=== PATIENT | male | born 1985 | race Caucasian/White ===

== ENCOUNTER 2017-12-04 13:34 | Observation (INO) | payer MEDICAID ==
[2017-12-04] MEDS ORDERED: Sodium Chloride 0.9% 1,000 ML IV STA (14:19)
[2017-12-04 14:42] LABS: BASO # 0.1 K/uL (0.0-0.2); BASO % 1.2 % (0.0-2.0); EOS % 0.4 % (0.0-4.0); HEMOGLOBIN 16.9 g/dL (12.0-18.0); LYMPH # 1.3 K/uL (1.0-4.3); LYMPH % 17.1 % (20.0-40.0); MEAN CELL VOLUME 94.1 fl (80.0-94.0); MEAN CORPUSCULAR HEMOGLOBIN 32.9 pg (27.0-31.0); MEAN PLATELET VOLUME 7.7 fl (7.2-11.7); MONO # 0.6 K/uL (0.0-0.8); MONO % 7.5 % (0.0-10.0); NEUT # 5.6 K/uL (1.8-7.0); NEUT % 73.8 % (50.0-75.0); NRBC % 1.8 % (0.0-0.0); RBC 5.13 Mil/uL (4.40-5.90); RED CELL DISTRIBUTION WIDTH 13.2 % (11.5-14.5); WHITE BLOOD COUNT 7.6 K/uL (4.8-10.8)
[2017-12-04 14:49] LABS: PARTIAL THROMBOPLASTIN TIME 28.3 Seconds (25.6-37.1); PROTHROMBIN TIME 10.5 Seconds (9.8-13.1)
--- NOTE | 2017-12-04 14:52 | ED PDOC ---
HPI: Chest Pain Time Seen by Provider: 12/04/17 14:04 Chief Complaint (Nursing): Chest Pain Chief Complaint (Provider): Chest Pain History Per: Patient History/Exam Limitations: no limitations Onset/Duration Of Symptoms: Hrs (x2) Current Symptoms Are (Timing): Still Present Additional Complaint(s): 32 year old male with medical history of substance abuse, presents to the emergency department with a complaint of chest pain radiating to his left arm 2 hours prior to arrival. Patient currently reports that left arm pain resolved on its own after several minutes but has associated palpitations, anxiety and shakiness. He admits to "partying all night" by mixing alcohol, Cherry and another unknown drug. He denies any depression, seizures, numbness, weakness, vomiting, nausea, suicidal or homicidal ideation. Patient states he would like to enter an outpatient rehab center. PMD: none provided Past Medical History Reviewed: Historical Data, Nursing Documentation, Vital Signs Vital Signs: Last Vital Signs Temp 97.7 F 12/05/17 08:00 Pulse 80 12/05/17 08:00 Resp 18 12/05/17 08:00 BP 108/73 12/05/17 08:00 Pulse Ox 98 12/05/17 08:00 - Medical History PMH: Seizures - Surgical History Surgical History: No Surg Hx - Family History Family History: States: Unknown Family Hx - Social History Current smoker - smoking cessation education provided: Yes Alcohol: Occasional - Immunization History Hx Tetanus Toxoid Vaccination: No Hx Influenza Vaccination: No Hx Pneumococcal Vaccination: No - Home Medications Home Medications: Ambulatory Orders Medication Instructions Recorded No Known Home Med 10/29/15 - Allergies Allergies/Adverse Reactions: Allergies Allergy/AdvReac Type Severity Reaction Status Date / Time No Known Allergies Allergy Verified 12/04/17 13:43 JOS Risk Score for UA/NSTEMI - JOS Risk Score Age > 64: NO 3 or more CAD Risk Factors: NO Known CAD (Stenosis greater than 50%): NO Aspirin use in past 7 days: NO Severe Angina: NO EKG ST changes greater than 0.5mm: NO Positive Cardiac Marker: NO JOS Score: 0 Risk %: 5% Wells Criteria for PE - Wells Criteria for Pulmonary Embolism Clinical Signs and Symptoms of DVT: No P.E is #1 Diagnosis, or Equally Likely: No Heart Rate >100: No Immobilization at least 3 days;Surgery previous 4 weeks: No Previous, objectively diagnosed PE or DVT: No Hemoptysis: No Malignancy w/treatment within 6 months, or palliative: No Total Score: 0 Review of Systems ROS Statement: Except As Marked, All Systems Reviewed And Found Negative Constitutional: Positive for: Other (shaking) Cardiovascular: Positive for: Chest Pain, Palpitations Gastrointestinal: Negative for: Nausea, Vomiting Musculoskeletal: Positive for: Arm Pain (left-sided) Neurological: Negative for: Weakness, Numbness, Seizures Psych: Positive for: Anxiety. Negative for: Depression, Suicidal ideation (or homicidal ideation) Physical Exam - Reviewed Nursing Documentation Reviewed: Yes Vital Signs Reviewed: Yes - Physical Exam Appears: Positive for: No Acute Distress Skin: Positive for: Warm, Diaphoresis. Negative for: Rash Eye Exam: Positive for: Normal appearance, EOMI, PERRL Neck: Positive for: Normal, Painless ROM, Supple Cardiovascular/Chest: Positive for: Chest Non Tender, Tachycardia (with regular rate) Respiratory: Positive for: Normal Breath Sounds. Negative for: Wheezing, Respiratory Distress Gastrointestinal/Abdominal: Positive for: Normal Exam, Soft. Negative for: Tenderness Extremity: Positive for: Normal ROM (upper/lower). Negative for: Deformity ( upper/lower) Neurologic/Psych: Positive for: Alert (x3), Oriented, Gait (steady), Other ( speaking full sentences). Negative for: Motor/Sensory Deficits - Laboratory Results Result Diagrams: 12/05/17 06:30 12/05/17 06:30 - ECG ECG: Positive for: Interpreted By Me, Viewed By Me ECG Rhythm: Positive for: Normal QRS, Normal ST Segment, Sinus Rhythm. Negative for: ST/T Changes Rate: 108 O2 Sat by Pulse Oximetry: 96 (RA) Pulse Ox Interpretation: Normal Medical Decision Making Medical Decision Making: Initial Impression: Chest pain; Substance abuse Differential Diagnosis: Cocaine-induced chest pain; Complications associated with drug use; Cardiac arrhythmia; TAD, Dehydration Initial Plan: * EKG * BMP * CPK * Drug screen, urine * Magnesium * Troponin I * CBC * PTT * PT * CXR * Ativan 1mh IV * NS 1,000ml IV per 1,000mls/hr Time: 1359 --EKG: Sinus tachycardia at 108 BMP. Normal QRS with no ST changes. Time: 1418 --CXR FINDINGS: LUNGS: Clear. PLEURA: No pneumothorax or pleural fluid seen. CARDIOVASCULAR: Normal. OSSEOUS STRUCTURES: No significant abnormalities. VISUALIZED UPPER ABDOMEN: Normal. OTHER FINDINGS: None. IMPRESSION: No active disease. 0 CT dissection protocol pending. Scribe Attestation: Documented by Megan Perry, acting as a scribe for Candie Jorge MD. Provider Scribe Attestation: All medical record entries made by the Scribe were at my direction and personally dictated by me. I have reviewed the chart and agree that the record accurately reflects my personal performance of the history, physical exam, medical decision making, and the department course for this patient. I have also personally directed, reviewed, and agree with the discharge instructions and disposition. Disposition - Clinical Impression Clinical Impression: Chest pain - Patient ED Disposition Is Patient to be Admitted: Transfer of Care Counseled Patient/Family Regarding: Studies Performed, Diagnosis - Disposition Disposition: Transfer of Care Disposition Time: 19:00 Condition: STABLE Patient Signed Over To: Janine Mathew
[2017-12-04 15:07] LABS: GFR AFRICAN-AMERICAN > 60; GFR NON-AFRICAN AMERICAN > 60
--- NOTE | 2017-12-04 15:08 | RAD ---
PROCEDURE: CHEST RADIOGRAPH, 1 VIEW HISTORY: chest pain COMPARISON: Chest radiograph dated 08/21/2016. FINDINGS: LUNGS: Clear. PLEURA: No pneumothorax or pleural fluid seen. CARDIOVASCULAR: Normal. OSSEOUS STRUCTURES: No significant abnormalities. VISUALIZED UPPER ABDOMEN: Normal. OTHER FINDINGS: None. IMPRESSION: No active disease.
[2017-12-04 15:19] LABS: BLOOD UREA NITROGEN 13 mg/dl (9-20)
[2017-12-04 17:52] LABS: BARBITURATES, UR NEGATIVE (NEGATIVE)
[2017-12-04 17:53] LABS: BENZODIAZEPINES, UR POSITIVE (NEGATIVE); OPIATES, UR NEGATIVE (NEGATIVE); PHENCYCLIDINE, UR NEGATIVE (NEGATIVE)
[2017-12-04] MEDS ORDERED: Sodium Chloride 0.9% 100 ML ONE (18:17)
[2017-12-04] MEDS ORDERED: Iodixanol 320 MG/ML 100 ML BOTTLE IV ONE (18:17)
--- NOTE | 2017-12-04 19:01 | CT ---
PROCEDURE: CT Angiography Chest, Abdomen and Pelvis with and without intravenous contrast HISTORY: chest pain COMPARISON: None. TECHNIQUE: Contiguous axial images of the chest, abdomen and pelvis were obtained in the phase of aortic enhancement. A noncontrast enhanced CT of the chest was also obtained to evaluate for possible intramural thrombus. Coronal and sagittal reformats were generated. IV dose administered: Visipaque 320, 95 cc Radiation dose: Total exam DLP = 1161.69 mGy-cm. This CT exam was performed using one or more of the following dose reduction techniques: Automated exposure control, adjustment of the mA and/or kV according to patient size, and/or use of iterative reconstruction technique. FINDINGS: CT ANGIOGRAPHY OF THE CHEST WITH & WITHOUT CONTRAST: AORTA (CHEST AND ABDOMEN): The thoracic and abdominal aorta are unremarkable, without aneurysm, dissection or rupture. No intramural thrombus identified in the thoracic aorta on the non-contrast ct of the chest. The celiac axis, superior mesenteric artery, inferior mesenteric artery and the renal arteries are widely patent. The pelvic arteries are unremarkable. LUNGS: Clear. No nodule, mass or consolidation. MEDIASTINUM: Unremarkable. Normal caliber aorta and pulmonary arterial trunk. No aortic dissection. Normal size heart. LYMPH NODES: Unremarkable. PLEURA: Unremarkable. No pneumothorax. No pleural fluid. BONES: Unremarkable. OTHER FINDINGS: None. CT ANGIOGRAPHY OF THE ABDOMEN AND PELVIS WITH CONTRAST: LIVER: Hepatic steatosis. No gross lesion or ductal dilatation. GALLBLADDER AND BILE DUCTS: Unremarkable. PANCREAS: Unremarkable. No gross lesion or ductal dilatation. SPLEEN: Unremarkable. ADRENALS: Unremarkable. No mass. KIDNEYS AND URETERS: Unremarkable. No hydronephrosis. No solid mass. VASCULATURE: Unremarkable. No aortic aneurysm. STOMACH AND BOWEL: Unremarkable. No obstruction. No gross mural thickening. APPENDIX: Normal appendix. PERITONEUM: Unremarkable. No free fluid. No free air. LYMPH NODES: Unremarkable. No enlarged lymph nodes. BONES: No acute fracture. OTHER FINDINGS: None. IMPRESSION: Normal aorta. Acute chest or abdomen findings as discussed above. Hepatic steatosis.
--- NOTE | 2017-12-04 19:14 | ED PDOC ---
- Laboratory Results Result Diagrams: 12/04/17 14:30 12/04/17 14:30 - ECG O2 Sat by Pulse Oximetry: 96 (RA) Pulse Ox Interpretation: Normal Medical Decision Making Medical Decision Making: Time: 1899 --Patient is endorsed to provider by Dr. Candie Jorge. Pending CTA chest and final disposition. Time: 1901 --FINDINGS: CT ANGIOGRAPHY OF THE CHEST WITH & WITHOUT CONTRAST: AORTA (CHEST AND ABDOMEN): The thoracic and abdominal aorta are unremarkable, without aneurysm, dissection or rupture. No intramural thrombus identified in the thoracic aorta on the non-contrast ct of the chest. The celiac axis, superior mesenteric artery, inferior mesenteric artery and the renal arteries are widely patent. The pelvic arteries are unremarkable. LUNGS: Clear. No nodule, mass or consolidation. MEDIASTINUM: Unremarkable. Normal caliber aorta and pulmonary arterial trunk. No aortic dissection. Normal size heart. LYMPH NODES: Unremarkable. PLEURA: Unremarkable. No pneumothorax. No pleural fluid. BONES: Unremarkable. OTHER FINDINGS: None. CT ANGIOGRAPHY OF THE ABDOMEN AND PELVIS WITH CONTRAST: LIVER: Hepatic steatosis. No gross lesion or ductal dilatation. GALLBLADDER AND BILE DUCTS: Unremarkable. PANCREAS: Unremarkable. No gross lesion or ductal dilatation. SPLEEN: Unremarkable. ADRENALS: Unremarkable. No mass. KIDNEYS AND URETERS: Unremarkable. No hydronephrosis. No solid mass. VASCULATURE: Unremarkable. No aortic aneurysm. STOMACH AND BOWEL: Unremarkable. No obstruction. No gross mural thickening. APPENDIX: Normal appendix. PERITONEUM: Unremarkable. No free fluid. No free air. LYMPH NODES: Unremarkable. No enlarged lymph nodes. BONES: No acute fracture. OTHER FINDINGS: None. IMPRESSION: Normal aorta. Acute chest or abdomen findings as discussed above. Hepatic steatosis. Time: 1947 --Discussed CTA findings with patient. --Patient continues to report persistent anginal-quality pain. --Advised need for hospitalization for proper treatment of pain. --Discussed case with Dr. Killian, hospitalist. Clinical Impression: Chest pain Scribe Attestation: Documented by Megan Perry, acting as a scribe for Janine Mathew MD. Provider Scribe Attestation: All medical record entries made by the Scribe were at my direction and personally dictated by me. I have reviewed the chart and agree that the record accurately reflects my personal performance of the history, physical exam, medical decision making, and the department course for this patient. I have also personally directed, reviewed, and agree with the discharge instructions and disposition. Disposition - Clinical Impression Clinical Impression: Chest pain - POA Present On Arrival: None - Disposition Disposition: Routine/Home Disposition Time: 20:00 Condition: FAIR
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
[2017-12-04] MEDS ORDERED: Thiamine 100 MG, Folic Acid 1 MG, Multivitamin 10 ML in Sodium Chloride 0.9% 1,000 ML IV SCH (20:15)
[2017-12-05 00:04] VITALS: RESP 18
[2017-12-05 08:04] VITALS: BP 108/73; TEMP 97.7
[2017-12-05 08:12] LABS: BASO # 0.1 K/uL (0.0-0.2); EOS # 0.5 K/uL (0.0-0.7); LYMPH # 2.7 K/uL (1.0-4.3); MEAN CELL VOLUME 94.7 fl (80.0-94.0); MEAN CORPUSCULAR HEMOGLOBIN 33.2 pg (27.0-31.0); MEAN CORPUSCULAR HGB CONC 35.1 g/dL (33.0-37.0); MEAN PLATELET VOLUME 7.4 fl (7.2-11.7); MONO # 0.9 K/uL (0.0-0.8); MONO % 10.9 % (0.0-10.0); NEUT # 3.8 K/uL (1.8-7.0); NEUT % 48.1 % (50.0-75.0); NRBC % 0.2 % (0.0-0.0); RBC 4.82 Mil/uL (4.40-5.90); RED CELL DISTRIBUTION WIDTH 13.2 % (11.5-14.5)
--- NOTE | 2017-12-05 08:59 | CP.PCM.DIS ---
Provider - Provider Date of Admission: 12/04/17 19:48 Attending physician: Avelino Killian MD Primary care physician: None Time Spent in preparation of Discharge (in minutes): 10 Hospital Course - Lab Results Lab Results: Most Recent Lab Values WBC 8.0 K/uL (4.8-10.8) 12/05/17 06:30 RBC 4.82 Mil/uL (4.40-5.90) 12/05/17 06:30 Hgb 16.0 g/dL (12.0-18.0) 12/05/17 06:30 Hct 45.7 % (35.0-51.0) 12/05/17 06:30 MCV 94.7 fl (80.0-94.0) H 12/05/17 06:30 MCH 33.2 pg (27.0-31.0) H 12/05/17 06:30 MCHC 35.1 g/dL (33.0-37.0) 12/05/17 06:30 RDW 13.2 % (11.5-14.5) 12/05/17 06:30 Plt Count 295 K/uL (130-400) 12/05/17 06:30 MPV 7.4 fl (7.2-11.7) 12/05/17 06:30 Neut % (Auto) 48.1 % (50.0-75.0) L 12/05/17 06:30 Lymph % (Auto) 34.0 % (20.0-40.0) 12/05/17 06:30 [place] % (Auto) 10.9 % (0.0-10.0) H 12/05/17 06:30 Eos % (Auto) 6.0 % (0.0-4.0) H 12/05/17 06:30 Baso % (Auto) 1.0 % (0.0-2.0) 12/05/17 06:30 Neut # (Auto) 3.8 K/uL (1.8-7.0) 12/05/17 06:30 Lymph # (Auto) 2.7 K/uL (1.0-4.3) 12/05/17 06:30 [place] # (Auto) 0.9 K/uL (0.0-0.8) H 12/05/17 06:30 Eos # (Auto) 0.5 K/uL (0.0-0.7) 12/05/17 06:30 Baso # (Auto) 0.1 K/uL (0.0-0.2) 12/05/17 06:30 PT 10.5 Seconds (9.8-13.1) 12/04/17 14:30 INR 1.0 (0.9-1.2) 12/04/17 14:30 APTT 28.3 Seconds (25.6-37.1) 12/04/17 14:30 Sodium 141 mmol/l (132-148) 12/04/17 14:30 Potassium 4.6 MMOL/L (3.6-5.0) 12/04/17 14:30 Chloride 103 mmol/L (98-107) 12/04/17 14:30 Carbon Dioxide 21 mmol/L (22-30) L 12/04/17 14:30 Anion Gap 22 (10-20) H 12/04/17 14:30 BUN 13 mg/dl (9-20) 12/04/17 14:30 Creatinine 1.0 mg/dl (0.8-1.5) 12/04/17 14:30 Est GFR ( Amer) > 60 12/04/17 14:30 Est GFR (Non-Af Amer) > 60 12/04/17 14:30 Random Glucose 95 mg/dL (75-110) 12/04/17 14:30 Calcium 10.0 mg/dL (8.4-10.2) 12/04/17 14:30 Magnesium 1.9 MG/DL (1.6-2.3) 12/04/17 14:30 Total Creatine Kinase 140 U/L (55-170) 12/04/17 14:30 Troponin I < 0.0120 ng/mL (0.00-0.120) 12/05/17 06:30 Urine Opiates Screen Negative (NEGATIVE) 12/04/17 17:30 Urine Methadone Screen Negative (NEGATIVE) 12/04/17 17:30 Ur Barbiturates Screen Negative (NEGATIVE) 12/04/17 17:30 Ur Phencyclidine Scrn Negative (NEGATIVE) 12/04/17 17:30 Ur Amphetamines Screen Negative (NEGATIVE) 12/04/17 17:30 U Benzodiazepines Scrn Positive (NEGATIVE) 12/04/17 17:30 U Oth Cocaine Metabols Positive (NEGATIVE) H 12/04/17 17:30 U Cannabinoids Screen Positive (NEGATIVE) H 12/04/17 17:30 - Hospital Course Hospital Course: 32 y/o male with PMH ETOH and cocaine abuse presented to ER for evaluation, after 3 night heavy partying with ETOH and cocaine abuse. He states that for the last 3 days has not been sleeping , has been drinking heavily and using cocaine. Today he felt his body was giving up, felt cramping contraction to his left upper extremity and chest palpitations, chest pain with deep breaths so decided to come to ER. 2 sets of Troponin so far negative and CTA chest showed no dissection or acute pathology . EKG showed normal ST. He was given Toradol and Ativan and at present feeling better , denies any chest pain , palpitations, SOB , cough , urinary symptoms and changes in bowel symptoms. He states that when he does not drink goes to withdrawals. As per patient his family is taking him to a detox program today placed under observation in telemetry Trop x 3 negative Tele monitor showed no arrythmia Chest pain resolved hemodynamically stable Will discharge patient home. Advise didier follow up with detox program as planned Counselled on ETOH and drug abuse Stress test as outpatient 1.Atypical Chest pain ACS ruled out 2. ETOH abuse no Dt-s 3. Cocaine abuse Detox as outpatient Discharge Exam - Head Exam Head Exam: ATRAUMATIC, NORMAL INSPECTION, NORMOCEPHALIC - Eye Exam Eye Exam: EOMI, PERRL Pupil Exam: NORMAL ACCOMODATION - ENT Exam ENT Exam: Mucous Membranes Moist, Normal Exam - Neck Exam Neck exam: Full Rom, Normal Inspection - Respiratory Exam Respiratory Exam: Clear to PA & Lateral, NORMAL BREATHING PATTERN. absent: Rales, Rhonchi, Wheezes - Cardiovascular Exam Cardiovascular Exam: REGULAR RHYTHM, RRR, +S1, +S2. absent: JVD - GI/Abdominal Exam GI & Abdominal Exam: Normal Bowel Sounds, Soft. absent: Distended, Guarding, Rebound, Tenderness - Rectal Exam Rectal Exam: Deferred - Extremities Exam Extremities exam: normal capillary refill, normal inspection, pedal pulses present - Back Exam Back exam: NORMAL INSPECTION - Neurological Exam Neurological exam: Alert, CN II-XII Intact, Oriented x3, Reflexes Normal - Psychiatric Exam Psychiatric exam: Normal Affect, Normal Mood - Skin Skin Exam: Dry, Intact, Normal Color, Warm Discharge Plan - Follow Up Plan Condition: STABLE Disposition: HOME/ ROUTINE Patient education suggested?: Yes Instructions: Drug Abuse and Drug Addiction (DC), Alcohol Abuse and Alcoholism (DC) Referrals: [facility] [Outside]
[2017-12-05] MEDS ORDERED: Pantoprazole 40 mg EC Tab PO SCH (09:00)
[2017-12-05 09:26] LABS: BLOOD UREA NITROGEN 22 mg/dl (9-20); CALCIUM 9.3 mg/dL (8.4-10.2); GFR AFRICAN-AMERICAN > 60; GFR NON-AFRICAN AMERICAN > 60
--- NOTE | 2017-12-05 12:38 | CARD ---
APPROVED REPORT EKG Measurement Heart [id number] <Conclusion> Sinus tachycardia Possible Left atrial enlargement Borderline ECG
[2017-12-06 11:36] VITALS: PULSE 108; O2SAT 96
== END 2017-12-05 13:10 | disposition home or self-care (01) ==
LOC: H.ER 13:34 → H.ERHOLD 19:48 → H.TEL 21:56
PROVIDERS: ADMIT Hospitalist; ATTEND Hospitalist
DX: R07.89 Other chest pain (principal); F10.10 Alcohol abuse, uncomplicated; F14.10 Cocaine abuse, uncomplicated; F17.210 Nicotine dependence, cigarettes, uncomplicated; Y90.9 Presence of alcohol in blood, level not specified
CPT/HCPCS: 36415; 71045; 71275; 74175; 80048; 82550; 83735; 84484; 85025; 85610; 85730; 93005; 96361; 96365; 96366; 96375; 96376; 99284; G0378; G0480; J1885; J2060; J3411; J7040; Q9967